=== PATIENT | male | born 1995 | race Caucasian/White ===

== ENCOUNTER 2016-12-13 19:59 | Emergency (ER) | payer MEDICAID, OTHER ==
[~2016-12-13] VITALS: Ht 172.7 cm; Wt 68.0 kg
[2016-12-13 20:08] VITALS: BP 117/70
[2016-12-13] MEDS ORDERED: ONDANSETRON HCL 4 MG/2 ML VIAL IM ONE (23:15)
[2016-12-13] MEDS ORDERED: HYDROmorphone HCL 2 MG/ML VL IM ONE (23:15)
[2016-12-13] MEDS ORDERED: HYDROmorphone HCL 2 MG/ML VL ONE (23:16)
[2016-12-13] MEDS ORDERED: ONDANSETRON HCL 4 MG/2 ML VIAL ONE (23:17)
== END 2016-12-13 23:49 | disposition home or self-care (01) ==
LOC: ER 20:02
DX: S50.01XA Contusion of right elbow, initial encounter (principal); S20.211A Contusion of right front wall of thorax, initial encounter; S80.00XA Contusion of unspecified knee, initial encounter; S80.11XA Contusion of right lower leg, initial encounter; V28.4XXA Motorcycle driver injured in noncollision transport accident in traffic accident, initial encounter; Y93.89 Activity, other specified; Y99.8 Other external cause status; Y92.89 Other specified places as the place of occurrence of the external cause
CPT/HCPCS: 71101; 73080; 73562; 73590; 96372; 99284; J1170; J2405